=== PATIENT | male | born 1990 | race Caucasian/White ===

== ENCOUNTER 2016-02-29 20:05 | Inpatient (IN) | payer OTHER ==
[~2016-02-29] VITALS: Ht 190.5 cm; Wt 93.0 kg
--- NOTE | 2016-02-29 20:18 | ED NEURO DEFICIT/STROKE ---
History of Present Illness General Chief Complaint: Neuro Symptoms/ Deficit Stated Complaint: ?STROKE Source: patient Exam Limitations: no limitations Vital Signs & Intake/Output Vital Signs & Intake/Output Vital Signs Date Time Temp Pulse Resp B/P Pulse O2 O2 Flow FiO2 Ox Delivery Rate 02/28 2148 67 20 115/76 99 Room Air 02/28 2013 95.3 78 18 143/82 99 Room Air Allergies Coded Allergies: No Known Allergies (02/29/16) Reconcile Medications No Known Home Medications Triage Nurses Notes Reviewed? yes Onset: Abrupt Duration: hour(s): Timing: recent history Severity: moderate Vision Problem? Yes Glaucoma? No Impaired Ability: difficult to speak, difficult to stand, DIFFICULTY SEEING HPI: 25 yo gentleman in prior good health, presents with mental status change. He notes that approximately 1.5 hours ago, he had an episode, "Where I got very lightheaded... I couldn't see... I tried to make a phone call, but I would look at the phone and it was like I couldn't see it.... I didn't understand it... It lasted about 1 hour and 15 minutes." He notes that, "The bottom half of my vision was blurry too... but now that's better." He notes that now he is feeling better, but still slightly lightheaded and with a mild headache. Past History Travel History Traveled to [place] past 21 day No Medical History Any Pertinent Medical History? see below for history Surgical History Surgical History: none Family History Hx Contributory? No Review of Systems Review of Systems Constitutional: Reports: no symptoms. EENTM: Reports: no symptoms. Respiratory: Reports: no symptoms. Cardiovascular: Reports: no symptoms. GI: Reports: no symptoms. Genitourinary: Reports: no symptoms. Musculoskeletal: Reports: no symptoms. Skin: Reports: no symptoms. Neurological/Psychological: Reports: no symptoms. Hematologic/Endocrine: Reports: no symptoms. Immunologic/Allergic: Reports: no symptoms. All Other Systems: Reviewed and Negative Physical Exam Physical Exam General Appearance: well developed/nourished, no apparent distress Head: atraumatic, normal appearance Eyes: Bilateral: normal appearance, PERRL, EOMI. Ears, Nose, Throat: normal ENT inspection Neck: normal inspection, supple, full range of motion Respiratory: normal breath sounds, chest non-tender, no respiratory distress, quiet respiration, lungs clear Cardiovascular: regular rate/rhythm Gastrointestinal: normal bowel sounds, soft, non-tender, no organomegaly Back: normal inspection, normal range of motion Extremities: normal range of motion Psychiatric: awake, alert, oriented x 3 Cranial Nerves: normal hearing, normal speech, PERRL Coordination/Gait: normal finger to nose, normal gait Motor/Sensory: no motor/sensory deficits Reflexes: 1+: bicep (R), bicep (L), knee (R), knee (L). Skin: intact, normal color, warm/dry Core Measures CVA/TIA Diagnosis: Yes Comment: NIH stroke score is zero... tpa not indicated. Severe Sepsis Present: No Septic Shock Present: No Progress Differential Diagnosis: intracranial Hem., intracranial mass/tumor, migraine NGUYEN, seizure disorder, stroke Plan of Care: Orders Procedure Date/time Status Nothing by Mouth 03/01 B Active Saline Lock 02/28 2253 Active Misc Message 02/28 2253 Active ED Holding Orders 02/28 2253 Active Vital Signs 02/28 2253 Active Code Status 02/[address] in observation 02/29 2252 Active Patient Data 02/29 2248 Active EKG 02/28 2151 Active Intake & Output 02/28 2122 Active URINE DRUG SCREEN FOR ER ONLY 02/28 2122 Complete URINALYSIS 02/28 2122 Complete NIH Stroke Scale 02/29 2020 Active TROPONIN LEVEL 02/28 2017 Complete PARTIAL THROMBOPLASTIN TIME 02/28 2017 Complete PROTHROMBIN TIME 02/28 2017 Complete COMPREHENSIVE METABOLIC PANEL 02/28 2017 Complete CBC WITHOUT DIFFERENTIAL 02/28 2017 Complete Laboratory Tests 02/29/162127: Urine Opiates Screen < 100.00, Methadone Screen < 40, Barbiturate Screen < 60, Ur Phencyclidine Scrn < 6.00, Amphetamines Screen < 100, U Benzodiazepines Scrn < 85, Urine Cocaine Screen < 50, Urine Cannabis Screen < 5.00, Urine Color YEL, Urine Clarity CLEAR, Urine pH 6.0, Ur Specific [place] 1.010, Urine Protein NEG, Urine Ketones NEG, Urine Nitrite NEG, Urine Bilirubin NEG, Urine Urobilinogen 0.2, Ur Leukocyte Esterase NEG, Ur Microscopic EXAM NOT REQUIRED, Urine Hemoglobin NEG, Urine Glucose NEG 02/29/162021: Serum Alcohol Cancelled 02/29/16 2015: Anion Gap 15, Estimated GFR > 60, BUN/Creatinine Ratio 11.3, Glucose 150 H, Calcium 9.7, Total Bilirubin 0.9, AST 26, ALT 33, Alkaline Phosphatase 53, Troponin I < 0.01, Total Protein 7.9, Albumin 5.0, Globulin 2.9, Albumin/ Globulin Ratio 1.7, PT 13.0 H, INR 1.24 H, APTT 33, CBC w Diff NO MAN DIFF REQ , RBC 5.44, MCV 89.3, MCH 29.8, RDW 12.3, MPV 7.0 L, Gran % 73.9, Lymphocytes % 17.9 L, Monocytes % 6.9, Eosinophils % 1.0, Basophils % 0.3, Absolute Granulocytes 5.7, Absolute Lymphocytes 1.4, Absolute Monocytes 0.5, Absolute Eosinophils 0.1, Absolute Basophils 0, PUBS MCHC 33.3 Diagnostic Imaging: Viewed by Me: CT Scan. Discussed w/RAD: CT Scan. Radiology Impression: head ct... non acute CXR Impression: no acute abnormality, no infiltrates, normal size heart, normal mediastinum Initial ED EKG: normal axis, normal intervals, normal p-waves, normal QRS complex, normal sinus rhythm Departure Departure Disposition: STILL A PATIENT Condition: Stable Clinical Impression Primary Impression: Mental status change Departure Forms: Customer Survey General Discharge Information Prescriptions: Current Visit Scripts No Known Home Medications Comments 02/29/16, 21:00.... discussed with [facility] radiology... head ct negative... pt reported recurrent left lower quadrant blurriness from left eye... symptoms resolved when I came to bedside. Now with normal neurological exam. 02/29/16, 21:56... discussed with dr. juarez (neuro)... pt likely with migraine... likely not tia, would consider inpt vs outpatient evaluation. However, abcd2 score of 4...moderate risk, confers 9.8% repeat risk for tia in 90 days if his symptoms are from a TIA... Pt to be observation status for neuro eval in AM. Observation Note Spoke With: SKYE LOJA,[facility] Physician Advisor Notified: CARRIE LANCASTER DO Place Patient In: Non-ED OBS Care Area Rationale for Observation: My rational for observation is as follows . pt with tia vs migraine with prolonged episode of confusion/mental status change... .pt merits neuro eval, monitoring, consider mri.
[2016-02-29 20:34] LABS: ABSOLUTE BASOPHIL COUNT 0 /CUMM (0.0-0.2); ABSOLUTE EOSINOPHIL COUNT 0.1 /CUMM (0.0-0.7); ABSOLUTE GRANULOCYTE CT 5.7 /CUMM (1.4-6.5); ABSOLUTE LYMPH COUNT 1.4 /CUMM (1.2-3.4); ABSOLUTE MONOCYTE COUNT 0.5 /CUMM (0.10-0.60); BASOPHIL % 0.3 % (0.0-2.0); GRANULOCYTE % 73.9 % (42.2-75.2); HEMATOCRIT 48.5 % (42-52); MEAN CORPUSCULAR HGB 29.8 PG (27.0-31.0); MEAN CORPUSCULAR HGB CONC 33.3 G/DL (33.0-37.0); MEAN CORPUSCULAR VOLUME 89.3 FL (80.0-94.0); PLATELET COUNT 152 /CUMM (130-400); RBC DISTRIBUTION WIDTH 12.3 % (11.5-14.5); RED BLOOD CELL CT 5.44 /CUMM (4.70-6.10); WHITE BLOOD CELL COUNT 7.7 /CUMM (4.8-10.8)
[2016-02-29 20:48] LABS: PTT 33 SEC (25-37)
--- NOTE | 2016-02-29 21:09 | RADIOLOGY REPORT ---
EXAMINATION: XR PORTABLE CHEST CLINICAL INFORMATION: Transient ischemic attack COMPARISON: None. TECHNIQUE: Portable view of the chest was obtained. The lateral left chest is excluded. FINDINGS: No significant abnormality is noted involving the heart, lungs, mediastinum, bony thorax or soft tissues. IMPRESSION: Unremarkable examination.
--- NOTE | 2016-02-29 21:10 | CT SCAN REPORT ---
EXAMINATION: CT HEAD WITHOUT CONTRAST CLINICAL INFORMATION: Mental status change. Stroke alert. COMPARISON: None. TECHNIQUE: Contiguous axial imaging was performed from the skull base to vertex without intravenous administration of contrast. DLP: 600.71 mGy-cm. FINDINGS: There is no evidence of acute intracranial hemorrhage or territorial infarction. No abnormal mass effect or midline shift is seen. Trimble to white matter differentiation is well preserved. No extra-axial fluid collections are identified. The ventricles are normal in size. There is no abnormal attenuation within the brain parenchyma. The osseous structures and soft tissues are normal. The mastoid air cells and visualized portions of the paranasal sinuses are well aerated. A subcentimeter sclerotic lesion in the left mastoid air cells may represent an osteoma. IMPRESSION: No acute intracranial pathology. 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 Urgent report called to Dr. Duran at 9:00 P.M. 02/29/2016.
--- NOTE | 2016-02-29 23:06 | History & Physical ---
HERMELINDO LOJA,[facility] 02/29/16 2305: General Information and HPI MD Statement: I have seen and personally examined DANYEL PAINTING and documented this H&P. The patient is a 25 year old M who presented with a patient stated chief complaint of blurry vision. Source of Information: patient Exam Limitations: no limitations History of Present Illness: This is a 25 yo very pleasent gentleman who self reports a history of possible migraine headaches (about 4-6 per year) that has never been evaluated or diagnosed,and a family history of migraines, presents to [place] ED with chief complaint of "my vision was completely distorted". Pt states that today around 1 pm, while at restoration, he felt a little dizzy while he was standing up, and decided to sit down. He then proceeded to pulling out his cell phone to call his girlfriend for help. Pt states that when he was about to call his girlfriend, his vision became very blurry to a point of not able to see anything on his phone ochoa pad. Pt does endorse a history of tranisent vision distortion/blurriness that which he states always preceded a headache. However, he states that this episode of vison distortion was more severe because it affected his entire entire visual robbins bilaterally. Patient also reports having a headache after this incident and some photophobia. 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 Pertinent negatives include no speech impairment/facial drop, no focal neurological deficit, no palpitation,no chest pain, and no seizure like activities, no recent head trauma, or eye infection. Allergies/Medications Allergies: Coded Allergies: No Known Allergies (02/29/16) Home Med list No Known Home Medications Past History Travel History Traveled to [place] past 21 day No Medical History Neurological: NONE EENT: NONE Cardiovascular: NONE Respiratory: NONE Gastrointestinal: NONE Hepatic: NONE Renal: NONE Musculoskeletal: NONE Psychiatric: NONE Endocrine: NONE Surgical History Surgical History: none Review of Systems Review of Systems Constitutional: Denies: no symptoms, chills, diaphoresis, fever, malaise, weakness. EENTM: Reports: see HPI. Cardiovascular: Denies: chest pain, palpitations, syncope. Respiratory: Denies: cough, hemoptysis, orthopnea, short of breath. GI: Denies: abdominal pain, bloating, constipation, distention. Genitourinary: Denies: dysuria, hematuria. Musculoskeletal: Denies: joint pain, muscle pain. Skin: Denies: lesions. Neurological/Psychological: Denies: ataxia, confusion, depressed, dementia. Hematologic/Endocrine: Reports: no symptoms. Immunologic/Allergic: Reports: no symptoms. Exam & Diagnostic Data Last 24 Hrs of Vital Signs/I&O Vital Signs Date Time Temp Pulse Resp B/P Pulse O2 O2 Flow FiO2 Ox Delivery Rate 03/01 0106 71 20 125/72 99 Room Air 02/28 2148 67 20 115/76 99 Room Air 02/28 2013 95.3 78 18 143/82 99 Room Air Intake & Output 03/01 0800 03/01 0000 02/28 1600 Intake Total Output Total 800 Balance -800 Output, Urine 800 Patient 92.986 kg Weight Physical Exam General Appearance Alert, Oriented X3, Cooperative Skin No Breakdown, No Significant Lesion HEENT Atraumatic, PERRLA, EOMI, Mucous Membr. moist/pink Neck Supple, No JVD, No thryomegaly, +2 Carotid Pulse wo Bruit, No LAD Lymphatic Cervical nl Cardiovascular Regular Rate, Normal S1, Normal S2, No Murmurs, Gallops Lungs Clear to Auscultation, Normal Air Movement Abdomen Normal Bowel Sounds, Soft, No Tenderness Neurological Normal Gait, Normal Speech, Strength at 5/5 X4 Ext, Normal Tone, Sensation Intact, Cranial Nerves 3-12 NL, Reflexes 2+ Extremities No Clubbing, No Cyanosis, No Edema, Normal Pulses, No Tenderness/ Swelling Vascular Normal Pulses, Pulses Symmetrical Diagnostic Data Other Results SERVICE DATE: 02/29/16 EXAM TYPE: CAT - CT HEAD WO IV CONTRAST EXAMINATION: CT HEAD WITHOUT CONTRAST CLINICAL INFORMATION: Mental status change. Stroke alert. COMPARISON: None. TECHNIQUE: Contiguous axial imaging was performed from the skull base to vertex without intravenous administration of contrast. DLP: 600.71 mGy-cm. FINDINGS: There is no evidence of acute intracranial hemorrhage or territorial infarction. No abnormal mass effect or midline shift is seen. Trimble to white matter differentiation is well preserved. No extra-axial fluid collections are identified. The ventricles are normal in size. There is no abnormal attenuation within the brain parenchyma. The osseous structures and soft tissues are normal. The mastoid air cells and visualized portions of the paranasal sinuses are well aerated. A subcentimeter sclerotic lesion in the left mastoid air cells may represent an osteoma. IMPRESSION: No acute intracranial pathology. 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 Urgent report called to Dr. Duran at 9:00 P.M. 02/29/2016. Assessment/Plan Assessment: This is 25 yo male with a history suggestive of undiagnosed migraine presents after having a transient episode of blurry vision loss which preceded a headache. No focal neurological deficits were reported. Patient symptoms of transient vision changes and headache is suggestive of migraine with aura especially considering patient's account of a history of headaches. It is possible that the recent stress including decrease sleep might have precipitated this attack. Pt will benefit from a neurology consultation. He does not have frequent migraine attacks to warrant preventative treatment. Other possible causes , even though less likely include TIA (the lack of focal neurological deficit goes against it), and seizures. Plan * Admit to telemetry for cardiac monitoring for arythmias * Neuro checks * Trend troponin * lipid panel * fioricet for headache, may consider triptan * IV fluid * Zofran as needed for possible nausea/vomiting * Neurology consult in am As Ranked By This Provider Problem List: 1. Migraine Core Measures/Miscellaneous Acute Coronary Syndrome ACS Diagnosis: No Cerebrovascular Accident CVA/TIA Diagnosis: No Congestive Heart Failure CHF Diagnosis: No Venous Thromboembolism VTE Risk Factors: Acute medical illness VTE Prophylaxis Ordered Inpt: Early Ambulation No Mech VTE prophylaxis d/t: VTE low risk No VTE Pharm Prophylaxis d/t: VTE low risk VTE Diagnosis: No VTE Type: NONE VTE Confirmed by (Test): NONE Severe Sepsis Severe Sepsis Present: No Septic Shock Septic Shock Present: No Miscellaneous Documentation Attending Case Discussed With: MD SKYE Primary Care Physician: DOES NOT HAVE PCP Patient sees these Specialists NONE Level of Patient Care: Telemetry SKYE LOJA, [facility] 03/01/16 0230: Attending MD Review Statement Attending Statement Attending MD Statement: examined this patient, discuss w/resident/PA/FUEL MANAGEMENT HANDLER, agreed w/resident/PA/FUEL MANAGEMENT HANDLER Attending Assessment/Plan: 25 yo healthy male presents for evaluation of vision changes. Patient was at restoration last evening around 5 pm, suddenly felt lightheaded, nauseous with a foggy/ blurry vision, confused as he was trying to reach out to his phone in his pocket, but was having difficulty doing so. Once he got the phone, he was not able to make a phone call due to the blurry vision. The episode lasted for about an hour, and it resolved completely when he was in the ER. This was followed by a mild frontal headache with photophobia that seems be getting better as well. He reports, he had few more such episodes while in the ER although these were short lived and not as bad. He reports a family h/o migraines, although he has never been diagnosed with migraine nor seen a neurologist. He does report similar episodes of "visual field blurring" followed by headache/photophobia since the age of 15, about 4-6 episodes per year, not affecting his daily activities. He uses aspirin or tylenol to help with these migraine headaches and they generally resolve in a few days. Today's episode was affected his ability to use the phone, instead of a particular "visual field", his entire visual field was blurred and he feels he might have ?passed out. No loss of hearing or ability to feel part of body. No slurring of speech or weakness or seizure like activity. He flew in from [place] 1 day prior and has had limited sleep. He cannot point out to any triggering factors for his migraine headaches. VSS. No neuro deficits on exam, visual robbins are accurate. Labs: glucose 150, trop neg, UA and Utox neg. CXR neg, CT head neg, except for incidental possible tiny osteoid osteoma left ethmoid sinus. EKG: SR, incidental note of J-point elevation in lead II, V2-6. 1. Typical migraine with aura with negative symptoms such as loss/ blurring of vision. Cannot rule out TIA/stroke. Patient's grandfather suffered stroke @ 60's , unclear if he had [place], but no other family member with cardiac issues at young age. Tele Obs, neurocheks, tylenol, NSAIDs or fioricet PRN for migraine. If headache persists, consider sumatriptan. Neuro consult in AM. Consider maintenance therapy for migraine, although he does not get frequent episodes. Anti-emetics, supportive therapy, IV fluids. Diet as tolerated. Holding off carotid dopplers or Echo. If he develops recurrent vision loss, consider MRI to assess for posterior fossa lesions. 2. EKG changes. Serial EKG and troponin. If positive, will consider Echo and Cardio consult. DVT ppx Alps. Full code. RIK SALGADO 03/01/16 0902: Resident Review Statement Resident Statement: examined this patient, discussed with software developer intern, agreed with software developer intern, discussed with family, reviewed EMR data (avail), discussed with nursing , reviewed images Other Findings: Mr. Painting is a 25-year-old gentleman with no PMH who presents with complaints of transient visual loss, headache and changes in sensorium. Symptoms started suddenly this evening at approximately 5 PM with transient complete visual loss lasting approximately one hour followed by a mild headache and lightheadedness. He denies any slurred speech, palpitations, chest pain, numbness/weakness in any extremities or difficulty with ambulation. He describes similar symptoms in the past of less severity which he associates with questionable migraines. Patient does endorse a family history of migraines. VS on admission: BP 143/82, HR 78, RR 18, SPO2 99% on RA, T 95.3 PE: AAO 3, mild photophobia, CN 3-12 intact, no evidence of nystagmus, visual robbins intact. RRR, normal S1/S2. Lungs CTA BL. Normal ambulation Pertinent labs: H&H 16.2/40.6, sodium 140, potassium 4.1, BUN/09/0.8, glucose 150 INR: 1.24 CT head: No acute intracranial pathology. Possible tiny status the left ethmoid sinus EKG: Sinus rhythm, HR 53. ST elevation probable normal early repolarization pattern Problem list: 1. Transient visual loss: DDX: TIA versus atypical migraine Plan: * Admit to telemetry for continuous cardiac monitoring. Serial EKG/troponin to rule out ACS * Neurology consult in the a.m. Patient reports a frequency of 4 similar episodes a year. He may benefit from abortive therapy if diagnosed with migraine * Neurochecks Q2 * Will obtain repeat EKG to assess ST-T pattern. Current EKG does show evidence of early repolarization * TG 60, cholesterol 143, LDL 92, HDL 39 * Will defer statin/echocardiogram/carotid ultrasound at this time unless clinical symptoms worsen. * Follow-up orthostatics. Patient has received 1 L saline * Regular diet * ALPs * Full code
[2016-03-01 08:30] VITALS: BP 110/80
--- NOTE | 2016-03-01 09:17 | PN- Housestaff ---
[facility] 03/01/16 0917: Subjective Follow-up For: sudden onset of visual disterbance migrane vs stroke Tele-Events Since Last Visit: SR/SB HR 53-63 no overnight events Subjective: patient was seen and examined this morning, no over night events reported by the patient or the nurses. He denied any blurry vision today, headache, weakness, dizziness, chest apin or palpitation. vital signs are stable. Review of Systems Constitutional: Denies: fever, malaise, weakness. EENTM: Denies: blurred vision, hearing changes, nasal congestion. Cardiovascular: Denies: chest pain, orthopena, palpitations, peripheral edema, syncope. Respiratory: Denies: cough, orthopnea, short of breath, sputum production, stridor, wheezing. Gastrointestinal: Denies: abdominal pain, constipation, diarrhea, nausea, vomiting. Genitourinary: Denies: dysuria, hematuria. Musculoskeletal: Denies: back pain, joint pain. Skin: Denies: rash. Neurological/Psychological: Denies: anxiety, headache, numbness, tingling, tremors. Hematologic/Endocrine: Denies: bleeding. Objective Last 24 Hrs of Vital Signs/I&O Vital Signs Date Time Temp Pulse Resp B/P Pulse O2 O2 Flow FiO2 Ox Delivery Rate 03/01 1552 97.8 66 18 122/80 98 Room Air 03/01 0830 98.1 65 16 110/80 97 Room Air 03/01 0800 97 Room Air 03/01 0106 71 20 125/72 99 Room Air 02/28 2148 67 20 115/76 99 Room Air Intake & Output 03/01 1600 03/01 0800 03/01 0000 Intake Total 630 335 Output Total 800 Balance 630 335 -800 Intake, IV 150 235 Intake, Oral 480 100 Output, Urine 800 Patient 92.986 kg 92.986 kg Weight Physical Exam General Appearance: Alert, Oriented X3, Cooperative, No Acute Distress Skin: No Rashes, No Breakdown, No Significant Lesion HEENT: Atraumatic, PERRLA, EOMI, Mucous Membr. moist/pink Neck: Supple, No JVD, No thryomegaly Cardiovascular: Regular Rate, Normal S1, Normal S2, No Murmurs Lungs: Clear to Auscultation, Normal Air Movement Abdomen: Normal Bowel Sounds, Soft, No Tenderness Neurological: Normal Speech, Strength at 5/5 X4 Ext, Normal Tone, Sensation Intact, Cranial Nerves 3-12 NL, Reflexes 2+ Extremities: No Clubbing, No Cyanosis, No Edema, Normal Pulses Other Physical Findings: no nystagmus Assessment/Plan Assessment: Mr. Painting is 25 yo male with previous history of migraine headache with visual aura not on any mediaction, extensive family history of migrane headache. patient presented with sudden onset of frequent visual disterbance, numbness, pines and needles sensation in both hands, headache and questionable LOC without convalsion, urinary or stool incontances. Today, he denied any headache, visual disterbance, weakness. on examination, no focal neurological deficits were detected. problem list #migrane headache vs TIA -all symptoms resolved, no focal neurological deficits -FioricetPO PRN Q12 for headache -Ct head was done that ruled out intracranial pathology -MRI head was done this morning showed 1. There are several acute to early subacute lacunar infarcts within the left thalamus, there is an acute to early subacute lacunar infarct within the superomedial right cerebellum, and there is a possible acute to early subacute lacunar infarct within the right occipital lobe. No hemorrhagic transformation and no mass effect. 2. No enhancing lesions. -It could be complicated migrane vs TIA, other causes should be excluded -Patient received one dose of 325 mg aspirin on admission, will start aspirin 81 mg daily -Start Atorvostatin 80 mg daily -Follow stroke protocol -Nerology conslation was placed, appriciate their recommendation -CTA head and neck was ordered, showed 1. There are no acute bleeds or territorial infarcts. 2. There are no masses or areas of abnormal enhancement. 3. CTA of the head and neck is within normal limits; no focal stenosis, aneurysm or vascular malformations are demonstrated. -Echo was ordered, did not show any abnormality. Normal left ventricular size, wall thickness and systolic function with no obvious regional wall motion abnormalities. No significant valve abnormalities. The left atrium is normal in size. Pulmonary artery systolic pressure is normal. Dilated IVC. Physiologic valvular regurgitation. -HAVEN echo was orded as well, patient placed NPO at midnight in anticipation for TTE tomorrow morning DVT pro. Alps Diet Regular, NPO at midnight Code Full Consulation Neurology Problem List: 1. Migraine 2. TIA (transient ischemic attack) 3. Mental status change Pain Ratin Pain Location: N/A Pain Goal: Remain pain free Pain Plan: Ibuprofen 600 mg PO sacle 4-6 Fioricet PO Q12 PRN headache Tomorrow's Labs & Rationales: CBC, CMP MARÍA ELENA ONOFRE MD 03/01/16 2209: Attending MD Review Statement Attending Statement Attending MD Statement: examined this patient, discuss w/resident/PA/THEATER EDUCATION TEACHER, agreed w/resident/PA/THEATER EDUCATION TEACHER, reviewed EMR data (avail), discussed with nursing, discussed with case mgmt, reviewed images, amended to note Attending Assessment/Plan: The patient was seen and discussed with house staff. Appreciate Neurology input. CT angiogram and TTE are negative. Will need HAVEN.
--- NOTE | 2016-03-01 12:53 | MRI REPORT ---
EXAMINATION: MR BRAIN WITHOUT AND WITH CONTRAST CLINICAL INFORMATION: Visual disturbance with severe headache. COMPARISON: Head CT February 2015. TECHNIQUE: MRI of the brain was obtained using routine sequences before and after the intravenous administration of 20 mL of OptiMARK. FINDINGS: There are several acute to subacute lacunar infarcts within the left thalamus, there is an acute to subacute lacunar infarct within the superomedial right cerebellum, and there is a possible acute to subacute lacunar infarct within the right occipital lobe. There is no pathologic intracranial enhancement. There is no hydrocephalus, extra-axial surface collection, or herniation. The major flow voids at the skull base are preserved. There is no intracranial hemorrhage on the gradient recalled echo acquisition. 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 The cerebellar tonsils are normally positioned. The cerebellum and brainstem are normal. The craniocervical junction is normal. Osseous marrow signal intensity is homogenous. The visualized soft tissues are unremarkable. IMPRESSION: - There are several acute to early subacute lacunar infarcts within the left thalamus, there is an acute to early subacute lacunar infarct within the superomedial right cerebellum, and there is a possible acute to early subacute lacunar infarct within the right occipital lobe. No hemorrhagic transformation and no mass effect. - No enhancing lesions.
[2016-03-01 15:52] VITALS: BP 122/80
--- NOTE | 2016-03-01 18:19 | ECHOCARDIOGRAM REPORT ---
DANYEL SAHU Age: 25 : 1990 Gender: M Exam Date: 03/01/2016 16:39 Exam Location: [address] [facility] Ht (in): 75 Wt (lb): 205 BSA: 2.23 BP: 122 / 80 Ordering Physician: BRADY ROBERTSON MD Referring Physician: BRADY ROBERTSON MD Technologist: Annalise Syed [facility] Room Number: 174-02 Indications: STROKE Rhythm: Sinus Technical Quality: Good FINDINGS Left Ventricle Normal left ventricular size, wall thickness and systolic function with no obvious regional wall motion abnormalities. Normal left ventricular diastolic filling pattern for age. The ejection fraction is visually estimated at >65 %. Right Ventricle The right ventricle is normal in size and function. Right Atrium The right atrium is normal in size. Left Atrium The left atrium is normal in size. The interatrial septum is intact. Mitral Valve The mitral valve is normal in structure and function. There is no mitral regurgitation. Aortic Valve Structurally normal aortic valve without significant sclerosis or stenosis. There is no aortic regurgitation. Tricuspid Valve The tricuspid valve is normal in structure and function. There is mild tricuspid regurgitation. Pulmonary artery systolic pressure is normal. Pulmonic Valve Structurally normal pulmonic valve. There is mild pulmonic regurgitation. Pericardium Normal pericardium without effusion. No pleural effusion. Great Vessels Normal aortic root dimension. The aortic arch and great vessels are well seen and are normal. Dilated IVC. CONCLUSIONS Normal left ventricular size, wall thickness and systolic function with no obvious regional wall motion abnormalities. No significant valve abnormalities. The left atrium is normal in size. Pulmonary artery systolic pressure is normal. Dilated IVC. Physiologic valvular regurgitation. Rajendra Storey M.D. (Electronically Signed) Final Date: 01 March 2016 18:18 MEASUREMENTS (Male / Female) Normal Values 2D ECHO LV Diastolic Diameter PLAX 5.1 cm 4.2 - 5.9 / 3.9 - 5.3 cm LV Systolic Diameter PLAX 3.2 cm 2.1 - 4.0 cm LV Fractional Shortening PLAX 37.3 % 25 - 46 % LV Ejection Fraction 2D Teich 66.9 % IVS Diastolic Thickness 0.6 cm LVPW Diastolic Thickness 0.9 cm LV Relative Wall Thickness 0.3 RV Internal Dim ED PLAX 2.5 cm 1.9 - 3.8 cm LVOT Diameter 2.1 cm Aortic Root Diameter 2.9 cm LA Systolic Diameter LX 2.9 cm 3.0 - 4.0 / 2.7 - 3.8 cm LA Volume 45.0 cm 18 - 58 / 22 - 52 cm Ascending Aorta Diameter 3.0 cm DOPPLER AV Peak Velocity 131.0 cm/s AV Peak Gradient 6.9 mmHg AV Mean Velocity 88.9 cm/s AV Mean Gradient 4.0 mmHg AV Velocity Time Integral 27.0 cm LVOT Peak Velocity 105.0 cm/s LVOT Peak Gradient 4.4 mmHg LVOT Mean Velocity 73.6 cm/s LVOT Mean Gradient 2.0 mmHg LVOT Velocity Time Integral 20.2 cm LVOT Stroke Volume 70.0 cm AV Area Cont Eq vti 2.6 cm AV Area Cont Eq pk 2.8 cm MV Peak Velocity 99.2 cm/s MV Peak Gradient 3.9 mmHg MV Mean Velocity 49.0 cm/s MV Mean Gradient 1.0 mmHg Mitral E Point Velocity 71.1 cm/s Mitral A Point Velocity 47.9 cm/s Mitral E to A Ratio 1.5 MV PHT Velocity 101.0 cm/s MV Deceleration [place] 380.0 cm/s MV Pressure Half Time 79.7 ms MV Area PHT 2.8 cm MV Deceleration Time 229.0 ms TR Peak Velocity 206.0 cm/s TR Peak Gradient 17.0 mmHg Right Atrial Pressure 5.0 mmHg Pulmonary Artery Systolic Pressu 22.0 mmHg Right Ventricular Systolic Press 22.0 mmHg PV Peak Velocity 100.0 cm/s PV Peak Gradient 4.0 mmHg PV Mean Velocity 74.5 cm/s PV Mean Gradient 3.0 mmHg PV Velocity Time Integral 23.5 cm LV E' Lateral Velocity 20.3 cm/s Mitral E to LV E' Lateral Ratio 3.5 LV E' Septal Velocity 11.6 cm/s Mitral E to LV E' Septal Ratio 6.1
--- NOTE | 2016-03-01 19:22 | Cons- Neurology ---
General Information and HPI Consulting Request Date of Consult: 03/01/16 Requested By: MARÍA ELENA ONOFRE MD Reason for Consult: R/o stroke Source of Information: patient Exam Limitations: no limitations History of Present Illness: This ia a 25 year old man who outside of migraine with aura has been healthy throughout his life. On Tuesday as he was leaving [place] around 5pm he suddenly felt off. He does not define it as dizzy but felt like he needed to sit down. He did and felt slightly better, however, upon getting up the sensation returned. He tried to call his girlfriend holding the phone in his left hand but could not see the phone as it was blurred out. He had a hard time pressing the phone too and pressed the wrong number numerous times. He also experienced sudden burning and numbness in both hands. He also felt that his speech was deliberate and laboured as if it was hard to produce language. On arrival to the hospital the symptoms subsided. However, later that night he developed a more typical migraine starting with visual field changes and obsucration in the left hemifield followed by a migraine. He is now back to his normal baseline. However, an MRI revealed a small embolic shower in the posterior circulation with a small lesion in the righ cerebellum and one in two in the lef thalamus. Allergies/Medications Allergies: Coded Allergies: No Known Allergies (02/29/16) Home Med List: No Known Home Medications Review of Systems Review of Systems: No other complaints. Denies neck pain. 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 Home Smoking Status: Unknown If Ever Smoked Exam & Diagnostic Data Vital Signs and I&O Vital Signs Date Time Temp Pulse Resp B/P Pulse O2 O2 Flow FiO2 Ox Delivery Rate 03/01 1552 97.8 66 18 122/80 98 Room Air 03/01 0830 98.1 65 16 110/80 97 Room Air 03/01 0800 97 Room Air 03/01 0106 71 20 125/72 99 Room Air 02/288 67 20 115/76 99 Room Air 02/28 2013 95.3 78 18 143/82 99 Room Air Intake & Output 03/01 1600 03/01 0800 03/01 0000 Intake Total 630 335 Output Total 800 Balance 630 335 -800 Intake, IV 150 235 Intake, Oral 480 100 Output, Urine 800 Patient 205 lb 205 lb Weight Physical Exam: Alert, oriented x3, conversant, fluent, and comprehends. Can repeat. S1 and S2 are normal, RRR, normal pedal pulses. EOMI, GIANLUCA, no nystagmus, face symmetric, no eyelid ptosis, tongue midline, uvular raises in midline, VF intact, V1-V3 sensation normal, hearing intact, TPZ and SCM strong. Strength is 5/5 throughout distribution. No drift. Tapping strong. Sensory exam normal. FNF and GABBIE normal. Gait normal. Romberg negative. Reflexes intact and toes downgoing. Last 48 Hours of Lab Results: Laboratory Tests 03/01 03/01 02/28 0635 0635 2128 Chemistry Sodium (137 - 145 mmol/L) 140 Potassium (3.5 - 5.1 mmol/L) 3.9 Chloride (98 - 107 mmol/L) 100 Carbon Dioxide (22 - 30 mmol/L) 27 Anion Gap (5 - 16) 14 BUN (9 - 20 mg/dL) 9 Creatinine (0.7 - 1.2 mg/dL) 0.8 Estimated GFR (>60 ml/min) > 60 BUN/Creatinine Ratio (7 - 25 %) 11.3 Hemoglobin A1c Pending Troponin I (<0.11 ng/ml) < 0.01 Triglycerides (<150 mg/dL) 60 Cholesterol (< 200 MG/DL) 143 LDL Cholesterol, Calc (65 - 129 mg/dL) 92 HDL Cholesterol (40 - 60 mg/dL) 39 L Cholesterol/HDL Ratio (0.00 - 4.88 %) 4 Vitamin B12 (239 - 931 pg/mL) 225 L Immunology ANCA Pending Toxicology Urine Opiates Screen (>2000 NG/ML) < 100.00 Methadone Screen (>300 NG/ML) < 40 Barbiturate Screen (>200 NG/ML) < 60 Ur Phencyclidine Scrn (>25 NG/ML) < 6.00 Amphetamines Screen (>1000 NG/ML) < 100 U Benzodiazepines Scrn (>200 NG/ML) < 85 Urine Cocaine Screen (>300 NG/ML) < 50 Urine Cannabis Screen (>50 NG/ML) < 5.00 Urines Urine Color (YEL,AMB,STR) YEL Urine Clarity (CLEAR) CLEAR Urine pH (5.0 - 8.0) 6.0 Ur Specific [place] (1.001 - 1.035) 1.010 Urine Protein (NEG,<30 MG/DL) NEG Urine Ketones (NEG) NEG Urine Nitrite (NEG) NEG Urine Bilirubin (NEG) NEG Urine Urobilinogen (0.1 - 1.0 EU/dl) 0.2 Ur Leukocyte Esterase (NEG) NEG Ur Microscopic EXAM NOT REQUIRED Urine Hemoglobin (NEG) NEG Urine Glucose (N MG/DL) NEG 02/28 Chemistry Sodium (137 - 145 mmol/L) 140 Potassium (3.5 - 5.1 mmol/L) 4.1 Chloride (98 - 107 mmol/L) 98 Carbon Dioxide (22 - 30 mmol/L) 27 Anion Gap (5 - 16) 15 BUN (9 - 20 mg/dL) 9 Creatinine (0.7 - 1.2 mg/dL) 0.8 Estimated GFR (>60 ml/min) > 60 BUN/Creatinine Ratio (7 - 25 %) 11.3 Glucose (65 - 99 mg/dL) 150 H Hemoglobin A1c Cancelled Calcium (8.4 - 10.2 mg/dL) 9.7 Total Bilirubin (0.2 - 1.3 mg/dL) 0.9 AST (17 - 59 U/L) 26 ALT (21 - 72 U/L) 33 Alkaline Phosphatase (< 127 U/L) 53 Troponin I (<0.11 ng/ml) < 0.01 Total Protein (6.3 - 8.2 g/dL) 7.9 Albumin (3.5 - 5.0 g/dL) 5.0 Globulin (1.9 - 4.2 gm/dL) 2.9 Albumin/Globulin Ratio (1.1 - 2.2 %) 1.7 Coagulation PT (9.4 - 12.5 SEC) 13.0 H INR (0.90 - 1.17) 1.24 H APTT (25 - 37 SEC) 33 Hematology CBC w Diff NO MAN DIFF REQ WBC (4.8 - 10.8 /CUMM) 7.7 RBC (4.70 - 6.10 /CUMM) 5.44 Hgb (14.0 - 18.0 G/DL) 16.2 Hct (42 - 52 %) 48.5 MCV (80.0 - 94.0 FL) 89.3 MCH (27.0 - 31.0 PG) 29.8 RDW (11.5 - 14.5 %) 12.3 Plt Count (130 - 400 /CUMM) 152 MPV (7.4 - 10.4 FL) 7.0 L Gran % (42.2 - 75.2 %) 73.9 Lymphocytes % (20.5 - 51.1 %) 17.9 L Monocytes % (1.7 - 9.3 %) 6.9 Eosinophils % (0 - 5 %) 1.0 Basophils % (0.0 - 2.0 %) 0.3 Absolute Granulocytes (1.4 - 6.5 /CUMM) 5.7 Absolute Lymphocytes (1.2 - 3.4 /CUMM) 1.4 Absolute Monocytes (0.10 - 0.60 /CUMM) 0.5 Absolute Eosinophils (0.0 - 0.7 /CUMM) 0.1 Absolute Basophils (0.0 - 0.2 /CUMM) 0 PUBS MCHC (33.0 - 37.0 G/DL) 33.3 Toxicology Serum Alcohol Cancelled Imaging/Other Studies: MRI brain revealed a few punctate diffusion positive lesions: one in right cerebellum and two in the thalamus. The MRI is otherwise normal. Echocardiogram TTE 2D normal. Assessment/Plan Assessment: 25 year old man with migraine with aura now presenting with a new embolic stroke within the posterior circulation. He has no traditional risk factors. The stroke is either areterioembolic emanating from one of the posterior circulation vessels or due to dissection. It could also be a cardioembloic stroke from Afib, aorta, apical thormbus, or even a paradoxical embolus. This is definitely a consideration as patient's with migraine with aura tend to have PFOs and are though to be at higher risk of embolic stroke from emboli crossing the PFO. Recommendations: 1. Recommend a thorough workup. Will need a HAVEN with a bubble study and assessment of the chambers and aorta for plaque. 2. Will need telemetry and exterminator termite event monitor as an outpt (ie at least a month). 3. MRA of head and neck. 4. Check anti-phospholipid antibodies, ESR and ANCA-p and c. 5. Check homocysteine and MMA as B12 is low and could serve to increase coagulability. 6. Supplement B12 with daily 1000mg injections x 4 days. 7. ASA 81mg daily. 8. If all workup is negative for a source of emboli and patient has a PFO, should consider PFO closure. Consult Acknowledgment - Thank you for your consult request.
--- NOTE | 2016-03-01 19:38 | CT SCAN REPORT ---
EXAMINATION: CT ANGIOGRAM OF THE HEAD CLINICAL INFORMATION: CVA. Assess for aneurysm or vasculitis. COMPARISON: CT scan of the head 02/29/2016. MRI scan of the brain 03/01/2016. TECHNIQUE: Test bolus sequences followed by intravenous administration 114 mL of Optiray 350. Helical imaging was performed in the axial plane from the mediastinum to the skull vertex. Delayed postcontrast imaging of the head was also performed. The data was processed at the technologist development workstation for generation of MIP sequences. The degree of stenosis is based off NASCET criteria. Three-dimensional volume rendered reformatted images were also generated at an offline 3-D workstation. FINDINGS: CT head: There is no evidence of acute intracranial hemorrhage or territorial infarction. No abnormal mass-effect or midline shift is seen. Trimble to white matter differentiation is well preserved. No extra-axial fluid collections are identified. There is no abnormal enhancement. The ventricles are normal in size. There is no abnormal attenuation within the brain parenchyma. The osseous structures and soft tissues are normal. The mastoid air cells and visualized portions of the paranasal sinuses are well-aerated. The study redemonstrates the area of calcification in the posterior left ethmoid air cells, most consistent with a small osteoma. CTA neck: The aortic arch has a classic configuration. The origins of the great vessels of the neck are widely patent. The brachiocephalic artery is somewhat optimally visualized due to beam hardening artifact from contrast in the right supraclavicular vasculature. The common carotid arteries are widely patent bilaterally with normal bifurcations. The internal carotid arteries in the neck have normal and uniform caliber. The origins of the vertebral arteries are normal and patent. The left vertebral artery is mildly dominant. Both vertebral arteries are patent throughout the neck, extending intradurally. Nonvascular: The lung apices are unremarkable. The thyroid gland has slightly heterogenous density, and there is a 4 mm area of low attenuation in the midpole of the left lobe laterally. There are multilevel small bilateral cervical lymph nodes. There are calcifications in the palatine tonsils bilaterally. There is a retention cyst in the inferior right axillary sinus, and the phlebolith described above is noted in the left ethmoid sinus. CTA head: In the anterior circulation, the distal internal carotid arteries within the neck appear normal. The intracranial internal carotid arteries and their bifurcations appear normal. The middle and anterior cerebral arteries bilaterally demonstrate normal caliber with no evidence of focal stenosis, aneurysm or vascular malformation. The anterior communicating artery is normal. In the posterior circulation, the left vertebral artery is dominant. The vertebral arteries intradurally have normal caliber. The basilar artery appears normal. The posterior cerebral arteries have normal caliber. The dural venous sinuses opacify normally. IMPRESSION: 1. There are no acute bleeds or territorial infarcts. 2. There are no masses or areas of abnormal enhancement. 3. CTA of the head and neck is within normal limits; no focal stenosis, aneurysm or vascular malformations are demonstrated.
[2016-03-01 20:00] VITALS: BP 124/80
[2016-03-02 08:00] VITALS: BP 100/68
--- NOTE | 2016-03-02 08:32 | PN- Housestaff ---
See Addendum JOANNA LOJA,[facility] 03/02/16 0831: Subjective Follow-up For: sudden onset of visual disterbance migrane vs TIA Tele-Events Since Last Visit: Sinus rhythm/sinus bradycardia Heart rate 47/64 No overnight events Subjective: Patient seen and examined this morning, he feels much better today. He reported having 2 episodes of right and left visual loss with headache 1 out of 10 on the pain severity scale that didn't need any pain medication. Today he feels better no headache or visual changes, denied any weakness, dizziness, change in sensation. His vital signs are stable. Patient is nothing by mouth for HAVEN. He had yesterday CTA head and neck, echo and MRI No overnight events reported by the nurse or the agent. Review of Systems Constitutional: Denies: fever, weakness. EENTM: Denies: blurred vision, hearing changes, nasal congestion. Cardiovascular: Denies: chest pain, palpitations, syncope. Respiratory: Denies: cough, orthopnea, short of breath. Gastrointestinal: Denies: abdominal pain, diarrhea, nausea, vomiting. Genitourinary: Denies: dysuria, hematuria. Musculoskeletal: Denies: joint pain, muscle pain. Skin: Denies: rash. Neurological/Psychological: Denies: anxiety, ataxia, confusion, tremors. Hematologic/Endocrine: Denies: bruising. Objective Last 24 Hrs of Vital Signs/I&O Vital Signs Date Time Temp Pulse Resp B/P Pulse O2 O2 Flow FiO2 Ox Delivery Rate 03/01 2000 98.1 64 16 124/80 99 Room Air 03/01 1552 97.8 66 18 122/80 98 Room Air Intake & Output 03/02 1600 03/02 0800 03/02 0000 Intake Total 600 Output Total Balance 600 Intake, Oral 600 Patient 92.986 kg Weight Physical Exam General Appearance: Alert, Oriented X3, Cooperative, No Acute Distress Skin: No Rashes, No Breakdown, No Significant Lesion HEENT: Atraumatic, PERRLA, EOMI, Mucous Membr. moist/pink Neck: Supple Cardiovascular: Regular Rate, Normal S1, Normal S2, No Murmurs Lungs: Clear to Auscultation, Normal Air Movement Abdomen: Normal Bowel Sounds, Soft, No Tenderness, No Hepatospenomegaly Neurological: Normal Gait, Normal Speech, Strength at 5/5 X4 Ext, Normal Tone, Sensation Intact, Cranial Nerves 3-12 NL, Reflexes 2+ Extremities: No Clubbing, No Cyanosis, No Edema, Normal Pulses Assessment/Plan Assessment: Mr. Painting is 25 yo male with previous history of migraine headache with visual aura not on any mediaction, extensive family history of migrane headache. patient presented with sudden onset of frequent visual disterbance, numbness, pines and needles sensation in both hands, headache and questionable LOC without convalsion, urinary or stool incontances. Today, he denied any headache, visual disterbance, weakness. on examination, no focal neurological deficits were detected. problem list #migrane headache vs TIA -all symptoms resolved, no focal neurological deficits -Fioricet PO PRN Q12 for headache -Ct head was done that ruled out intracranial pathology -MRI head was done this morning showed 1. There are several acute to early subacute lacunar infarcts within the left thalamus, there is an acute to early subacute lacunar infarct within the superomedial right cerebellum, and there is a possible acute to early subacute lacunar infarct within the right occipital lobe. No hemorrhagic transformation and no mass effect. 2. No enhancing lesions. -It could be complicated migrane vs TIA, other causes should be excluded -Patient received one dose of 325 mg aspirin on admission, will start aspirin 81 mg daily -Continue Atorvostatin 80 mg daily -Follow stroke protocol -Nerology conslation was placed, appriciate their recommendation -CTA head and neck was ordered, showed 1. There are no acute bleeds or territorial infarcts. 2. There are no masses or areas of abnormal enhancement. 3. CTA of the head and neck is within normal limits; no focal stenosis, aneurysm or vascular malformations are demonstrated. -Echo was ordered, did not show any abnormality. Normal left ventricular size, wall thickness and systolic function with no obvious regional wall motion abnormalities. No significant valve abnormalities. The left atrium is normal in size. Pulmonary artery systolic pressure is normal. Dilated IVC. Physiologic valvular regurgitation. -anti-phospholipid antibodies, ESR and ANCA-p and c, ESR -ESR 2 within normal -Vit B12 was low 225, MMA and Homocysteinewas ordered -Supplemental B12 with daily 1000mg injections x 4 days was started yesterday -HAVEN echo was orded as well, patient placed NPO at midnight in anticipation for TTE this morning DVT pro. Alps Diet Regular, NPO at midnight Code Full Consulation Neurology Problem List: 1. Migraine 2. TIA (transient ischemic attack) Pain Ratin Pain Location: N/A Pain Goal: Remain pain free Pain Plan: see mediaction Tomorrow's Labs & Rationales: none MARÍA ELENA ONOFRE MD 03/02/16 1715: Attending MD Review Statement Attending Statement Attending MD Statement: examined this patient, discuss w/resident/PA/BRANCH MAKER, agreed w/resident/PA/BRANCH MAKER, reviewed EMR data (avail), discussed with nursing, discussed with case mgmt, reviewed images, amended to note Attending Assessment/Plan: The patient was seen and discussed with house staff. Agree with plan of care. HAVEN tomorrow planned. Message left for the patient's PCP Dr. Colin in [place].
[2016-03-02 12:47] LABS: ABSOLUTE BASOPHIL COUNT 0 /CUMM (0.0-0.2); ABSOLUTE EOSINOPHIL COUNT 0.1 /CUMM (0.0-0.7); ABSOLUTE GRANULOCYTE CT 2.4 /CUMM (1.4-6.5); ABSOLUTE LYMPH COUNT 1.5 /CUMM (1.2-3.4); ABSOLUTE MONOCYTE COUNT 0.3 /CUMM (0.10-0.60); BASOPHIL % 0.8 % (0.0-2.0); EOSINOPHIL % 2.6 % (0-5); GRANULOCYTE % 54.4 % (42.2-75.2); MEAN CORPUSCULAR HGB 29.7 PG (27.0-31.0); MEAN CORPUSCULAR HGB CONC 33.5 G/DL (33.0-37.0); MEAN CORPUSCULAR VOLUME 88.5 FL (80.0-94.0); MEAN PLATELET VOLUME 7.4 FL (7.4-10.4); PLATELET COUNT 138 /CUMM (130-400); RBC DISTRIBUTION WIDTH 12.3 % (11.5-14.5); WHITE BLOOD CELL COUNT 4.3 /CUMM (4.8-10.8)
--- NOTE | 2016-03-02 14:35 | Cons- Cardiology ---
General Information and HPI Consulting Request Date of Consult: 03/02/16 Requested By: MARÍA ELENA ONOFRE MD History of Present Illness: Mr. Painting is a 25 year old male with history of migraine who was doing well until Tuesday afternoon. At that time he suddenly felt dizzy and opted to sit down. Upon again trying to arise he had similar symptoms and sat down on the groung again. He tried to make a phone call but found it difficult to dial. There was no actual loss of vision but the patient could not see clearly enough to dial. He also feels that he may have passed out since he lost track of time and felt that less time had gone by than actually had. These symptoms were followed by a headeache. The patient denies any palpitations. He now feels back to his normal self. It should be noted that this patient has had similar blurred vision in the past that was typically followed by a headache. No other neurological deficits were noted. Allergies/Medications Allergies: Coded Allergies: No Known Allergies (02/29/16) Home Med List: No Known Home Medications Review of Systems Review of Systems: A twelve point review of systems was unremarkable. Past History Travel History Traveled to [place] past 21 day No Medical History Blood Transfusion Hx: No Neurological: migraine EENT: NONE Cardiovascular: NONE Respiratory: NONE Gastrointestinal: NONE Hepatic: NONE Renal: NONE Musculoskeletal: NONE Psychiatric: NONE Endocrine: NONE Blood Disorders: NONE Cancer(s): NONE NARCOTICS AND/OR VICE DETECTIVE/Reproductive: NONE Surgical History Surgical History: 1 Psychosocial History Where Do You Live? Home Smoking Status: Never Smoked ETOH Use: occasional use Exam & Diagnostic Data Vital Signs and I&O Vital Signs Date Time Temp Pulse Resp B/P Pulse O2 O2 Flow FiO2 Ox Delivery Rate 03/02 799 98.3 53 20 100/68 92 Nasal 3.0L Cannula 03/01 1999 98.1 64 16 124/80 99 Room Air 03/01 1552 97.8 66 18 122/80 98 Room Air Intake & Output 03/02 1600 03/02 0000 03/01 1600 03/01 0000 Intake Total 600 630 335 Output Total 800 Balance 600 630 335 -800 Intake, IV 150 235 Intake, Oral 600 480 100 Output, Urine 800 Patient 205 lb 205 lb 205 lb Weight Physical Exam: General: WD/ WN male in NAD; alert and oriented x 3 HEENT: NC/AT, PERRL, EOMI, clear oropharynx with mmm Neck: no JVD, no carotid bruit heart: RRR w/o murmur Lungs: clear bilaterally Abdomen: soft, NT, +ve bowel sounds Extremities: no edema Neuro: non-focal Assessment/Plan Assessment/Plan * This patient has symptoms consistent with migraine. There are reports that both syncope and migraine are associated with ASD's. I do not think this patient had a stroke or source of thrombus but it is reasonable and recommended to obtain a bubble study to exclude an atrial shunt. No murmur has been detected on exam. While in the hospital the patient can be monitored for dysrhythmia's of the heart but an arrhythmia is unlikely to cause these symptoms. Consult Acknowledgment - Thank you for your consult request.
[2016-03-02 15:30] VITALS: BP 102/58
[2016-03-02 23:00] VITALS: BP 108/72
[2016-03-03 08:00] VITALS: BP 110/60
--- NOTE | 2016-03-03 11:13 | PN- Housestaff ---
JOANNA LOJA,[facility] 03/03/16 1113: Subjective Follow-up For: Migraine Lacunar infarction Tele-Events Since Last Visit: Sinus bradycardia 55-58 No overnight events Subjective: Patient was seen and examined this morning, no overnight events reported by the patient or the nurses. No acute distress, vital signs are stable. Review of Systems Constitutional: Denies: no symptoms. Objective Last 24 Hrs of Vital Signs/I&O Vital Signs Date Time Temp Pulse Resp B/P Pulse O2 O2 Flow FiO2 Ox Delivery Rate 03/03 799 97.6 64 20 110/60 97 Room Air 03/02 2300 98.2 56 18 108/72 97 Room Air Intake & Output 03/03 1600 03/03 0800 03/03 0000 Intake Total 100 0 800 Output Total Balance 100 0 800 Intake, IV 0 0 Intake, Oral 100 0 800 Number 0 0 Bowel Movements Physical Exam General Appearance: Alert, Oriented X3, Cooperative, No Acute Distress Skin: No Rashes, No Breakdown, No Significant Lesion Cardiovascular: Regular Rate, Normal S1, Normal S2, No Murmurs Lungs: Clear to Auscultation, Normal Air Movement Abdomen: Normal Bowel Sounds, Soft, No Tenderness Neurological: Normal Gait, Normal Speech, Strength at 5/5 X4 Ext, Normal Tone, Sensation Intact, Cranial Nerves 3-12 NL, Reflexes 2+ Extremities: No Clubbing, No Cyanosis, No Edema, Normal Pulses Assessment/Plan Assessment: Mr. Painting is 25 yo male with previous history of migraine headache with visual aura not on any mediaction, extensive family history of migrane headache. patient presented with sudden onset of frequent visual disterbance, numbness, pines and needles sensation in both hands, headache and questionable LOC without convalsion, urinary or stool incontances. Today, he denied any headache, visual disterbance, weakness. on examination, no focal neurological deficits were detected. Patient is for discharge today after normal HAVEN, although up with his PCP in [place], patient will be getting all of his imaging studies problem list #migrane headache -all symptoms resolved, no focal neurological deficits -Fioricet PO PRN Q12 for headache -Ct head was done that ruled out intracranial pathology -MRI head was done this morning showed 1. There are several acute to early subacute lacunar infarcts within the left thalamus, there is an acute to early subacute lacunar infarct within the superomedial right cerebellum, and there is a possible acute to early subacute lacunar infarct within the right occipital lobe. No hemorrhagic transformation and no mass effect. 2. No enhancing lesions. -It could be complicated migrane, other causes should be excluded -Patient received one dose of 325 mg aspirin on admission, will start aspirin 81 mg daily -Atorvostatin 80 mg daily -anti-phospholipid antibodies, ANCA-p and c bending -ESR 2 within normal -Vit B12 was low 225, MMA and Homocysteinewas ordered -Supplemental B12 with daily 1000mg injections x 4 days was started yesterday -Follow cardiology recommendation -Patient will be discharged on aspirin 81 mg daily -Nerology conslation was placed, appriciate their recommendation -CTA head and neck was ordered, showed 1. There are no acute bleeds or territorial infarcts. 2. There are no masses or areas of abnormal enhancement. 3. CTA of the head and neck is within normal limits; no focal stenosis, aneurysm or vascular malformations are demonstrated. -Echo was ordered, did not show any abnormality. Normal left ventricular size, wall thickness and systolic function with no obvious regional wall motion abnormalities. No significant valve abnormalities. The left atrium is normal in size. Pulmonary artery systolic pressure is normal. Dilated IVC. Physiologic valvular regurgitation. -HAVEN echo didn't show any abnormality Normal transesophageal echocardiogram. No evidence of cardioembolic source for neurologic signs and symptoms. Physiologic valvular regurgitation. DVT pro. Alps Diet Regular, NPO at midnight Code Full Consulation Neurology Problem List: 1. Migraine 2. Lacunar infarction Pain Ratin Pain Location: N/A Pain Goal: Remain pain free Pain Plan: see mediaction Tomorrow's Labs & Rationales: none MARÍA ELENA ONOFRE MD 03/03/16 1628: Attending MD Review Statement Attending Statement Attending MD Statement: examined this patient, discuss w/resident/PA/SURGEON PARTNER, agreed w/resident/PA/SURGEON PARTNER, discussed with family, reviewed EMR data (avail), discussed with nursing, discussed with case mgmt, reviewed images, amended to note Attending Assessment/Plan: The patient was seen and discussed with house staff. HAVEN was negative. OK to discharge patient today on ASA 81 mg daily. Spoke with Dr. Reed covering for his PCP Dr. Colin. She will arrange neuro and cardiology follow-up in [facility] where the patient lives.
--- NOTE | 2016-03-03 15:28 | ECHOCARDIOGRAM REPORT ---
DANYEL SAHU Age: 25 : Gender: M Exam Date: 03/03/2016 11:50 Exam Location: Opp Echo Ht (in): 75 Wt (lb): 205 BSA: 2.23 BP: / Ordering Physician: JONATHAN WAHL MD Referring Physician: JONATHAN WAHL MD Technologist: Tee Packer [facility] Room Number: [id number] Indications: STROKE Rhythm: Sinus Technical Quality: Good Medications TIVA Ease of Transducer Insertion Minor Difficulty Complications None Technical Difficulty None FINDINGS Left Ventricle Normal left ventricular size, wall thickness and systolic function with no obvious regional wall motion abnormalities. Normal left ventricular diastolic filling pattern for age. The ejection fraction is visually estimated at > 65%. Right Ventricle The right ventricle is normal in size and function. Right Atrium The right atrium is normal in size. Left Atrium The left atrium is normal in size. LA Appendage Well visualized and no evidence of spontaneous contrast and/or thrombus. IA Septum The interatrial septum was intact by Doppler color flow and by venous injection of agitated saline (" bubble study"). Mitral Valve The mitral valve is normal in structure and function. No evidence of vegetation on the mitral valve. There is trace mitral regurgitation. Aortic Valve Structurally normal aortic valve without significant sclerosis or stenosis. No evidence of vegetation on the aortic valve. There is no aortic regurgitation. Tricuspid Valve The tricuspid valve is normal in structure and function. No evidence of tricuspid valve vegetation. There is trace tricuspid regurgitation. Pulmonic Valve Structurally normal pulmonic valve. No evidence of pulmonic valve vegetation. There is trace pulmonic regurgitation. Pericardium No pericardial effusion. Great Vessels Normal size aortic root. CONCLUSIONS Normal transesophageal echocardiogram. No evidence of cardioembolic source for neurologic signs and symptoms. Physiologic valvular regurgitation. Mynor Zuniga M.D. (Electronically Signed) Final Date: 03 March 2016 15:28 MEASUREMENTS (Male / Female) Normal Values
[2016-03-03] MEDS ORDERED: ASPIRIN81 M4 PO (15:36)
--- NOTE | 2016-03-03 15:37 | Patient Discharge Instructions ---
Discharge Instructions General Discharge Information Special Instructions: Please follow-up with your PCP within 1 week after discharge Acute Coronary Syndrome Inclusion Criteria At DC or during hospital stay patient has or had the following: ACS DIAGNOSIS No Discharge Core Measures Meds if any: Prescribed or Continued at Discharge Meds if any: NOT Prescribed or Continued at Discharge Congestive Heart Failure Inclusion Criteria At DC or during hospital stay patient has or had the following: CHF DIAGNOSIS No Discharge Core Measures Meds if any: Prescribed or Continued at Discharge Meds if any: NOT Prescribed or Continued at Discharge Cerebrovascular accident Inclusion Criteria At DC or during hospital stay patient has or had the following: CVA/TIA Diagnosis No Discharge Core Measures Meds if any: Prescribed or Continued at Discharge Meds if any: NOT Prescribed or Continued at Discharge Venous thromboembolism Inclusion Criteria VTE Diagnosis No VTE Type NONE VTE Confirmed by (Test) NONE Discharge Core Measures - Per Current guidelines, there needs to be overlap - treatment for the first 5 days of Warfarin therapy. - If discharged on Warfarin prior to 5 days of - overlap therapy, the patient will need to be - assessed for post discharge needs including - *Post discharge parental anticoagulation - *Warfarin and/or parental anticoagulation education - *Follow up date to check INR post discharge At least 5 days overlap therapy as Inpatient Yes Meds if any: Prescribed or Continued at Discharge Note: Overlap Therapy is Warfarin and Anticoagulant Meds if any: NOT Prescribed or Continued at Discharge
--- NOTE | 2016-03-03 15:53 | PN- Cardiology ---
Subjective Subjective: * Patient is doing well and feels back to baseline. * Stable sinus rhythm * No evidence of an ASD/ PFO or source of thrombus on his HAVEN Objective Vital Signs and I&Os Vital Signs Date Time Temp Pulse Resp B/P Pulse O2 O2 Flow FiO2 Ox Delivery Rate 03/03 08 97.6 64 20 110/60 97 Room Air 03/02 2300 98.2 56 18 108/72 97 Room Air Intake & Output 03/03 1600 03/03 0803/03 0000 03/02 1600 03/02 0803/02 0000 Intake Total 100 0 800 300 600 Output Total Balance 100 0 800 300 600 Intake, IV 0 0 Intake, Oral 100 0 800 300 600 Number 0 0 Bowel Movements Patient 205 lb Weight Physical Exam: General: WD/ WN male in NAD; alert and oriented x 3 Neck: no JVD, no carotid bruit heart: RRR w/o murmur Lungs: clear bilaterally Extremities: no edema Neuro: non-focal Assessment/Plan Assessment/Plan * There are no findings of ASD/PFO or source of embolus on the patient's HAVEN today. If he did have paroxysmal atrial fibrillation then he would be a candidate for chronic anticoagulation since a stroke would give him an adequate CHADS score to warrant this. At present, there are no echo findings to suggest that he is at risk for atrial fibrillation and he appears to be in a stable sinus rhythm. I recommend follow up as an outpatient with implantation of a loop recorder to look for paroxysmal atrial fibrillation. For now begin aspirin 81mg daily. Continue telemetry? Yes
--- NOTE | 2016-03-03 16:13 | Discharge Summary ---
Visit Information Visit Dates Admission Date: 03/01/16 Discharge Date: 03/03/16 Hospital Course Course Attending Physician: MARÍA ELENA ONOFRE MD Primary Care Physician: UNKNOWN Hospital Course: Mr. Painting is 25 yo male with previous history of migraine headache with visual aura not on any mediaction, extensive family history of migrane headache. patient presented with sudden onset of frequent visual disterbance, numbness, pines and needles sensation in both hands, headache and questionable LOC without convulation, urinary or stool incontances, on examination, no focal neurological deficits were detected. problem list #migrane headache -all symptoms resolved, no focal neurological deficits -Cardiology recommendation was obtained to exclude PFO -Nerology recommendation was obtained -Ct head was done that ruled out intracranial pathology -MRI head was done this morning showed 1. There are several acute to early subacute lacunar infarcts within the left thalamus, there is an acute to early subacute lacunar infarct within the superomedial right cerebellum, and there is a possible acute to early subacute lacunar infarct within the right occipital lobe. No hemorrhagic transformation and no mass effect. 2. No enhancing lesions. -It could be complicated migrane, other causes should be excluded -Patient received one dose of 325 mg aspirin on admission, will start aspirin 81 mg daily -Atorvostatin 80 mg daily -anti-phospholipid antibodies Negative , ANCA screnn that include C-ANCA, P-ANCA and atypical P-ANCA are negative -ESR 2 within normal -Vit B12 was low 225, MMA and Homocysteinewas are within normal -Supplemental B12 with daily 1000mg injections x 4 days -Fioricet PO PRN Q12 for headache -CTA head and neck was ordered, showed 1. no acute bleeds or territorial infarcts. 2. no masses or areas of abnormal enhancement. 3. CTA of the head and neck is within normal limits; no focal stenosis, aneurysm or vascular malformations are demonstrated. -TTE was obtained, did not show any abnormality. Normal left ventricular size, wall thickness and systolic function with no obvious regional wall motion abnormalities. No significant valve abnormalities. The left atrium is normal in size. Pulmonary artery systolic pressure is normal. Dilated IVC. Physiologic valvular regurgitation. -HAVEN was obtained as well, didn't show any abnormality Normal transesophageal echocardiogram. No evidence of cardioembolic source for neurologic signs and symptoms. Physiologic valvular regurgitation. -After excluding all other possible causes of Lacunar infaction including cardic , hematology and autoimmue. It is most probably complicated migarine. patient was discharged on Aspirin 81 mg daily and was given all the imaging study results to follow up with his PCP Dr. Colin in [facility] [place]. DVT pro. Alps Diet Regular regular diet Code Full Consulation Neurology, cardiology Allergies: Coded Allergies: No Known Allergies (02/29/16) Disposition Summary Disposition Principal Diagnosis: Complicated Migraine Additional Diagnosis: none Discharge Disposition: home or self care Discharge Instructions General Discharge Information Code Status: Full Code Patient's Diet: Regular Patient's Activity: Regular Follow-Up Instructions/Appts: Please follow-up with your PCP within 1 week after discharge Medications at Discharge Discharge Medications: Start taking the following new medications: Aspirin (Aspirin*) 81 MG TAB.CHEW 1 Tablet ORAL DAILY Qty = 30 No Refills Copies To: SWETHA LOJA,ANNETTE; BEVERLY LOJA PhD,JAZMYNE Jernigan Attending MD Review Statement Documenting Attending: MARÍA ELENA ONOFRE MD Other Findings: The patient was seen and agree with the plan of care upon discharge.
[2016-03-08 21:29] LABS: PTT LA SCREEN 33 sec (< OR = 40)
== END 2016-03-03 17:11 | DRG 45 ==
LOC: ERH 20:05 → ERHI 22:53 → 1NO 22:53 → ENPENDDIS 03-01 16:11 → 1NO 03-01 16:11
PROVIDERS: Internal Medicine; Pediatrics; Student in an Organized Health Care Education/Training Program; ADMIT Student in an Organized Health Care Education/Training Program
PROC: B246ZZ4 Ultrasonography of Right and Left Heart, Transesophageal (ICD-10-PCS; principal; 2016-03-03)
DX: I63.433 Cerebral infarction due to embolism of bilateral posterior cerebral arteries (principal); G43.909 Migraine, unspecified, not intractable, without status migrainosus; H53.149 Visual discomfort, unspecified
CPT/HCPCS: 1NSP; 70552; 83921; 85613; 85730; 86021; 86146; 86148; 70553; 80307; 81003; 82436; 93005; 93010; 93306; 93325; 96374; 96375; A9579; G0480; J1885; J2405; J3420; J3490